=== PATIENT | female | born 1955 | race African-American/Black ===

== ENCOUNTER 2016-11-05 07:54 | Emergency (ER) | payer OTHER ==
[~2016-11-05] VITALS: Ht 170.2 cm; Wt 83.9 kg
[2016-11-05] MEDS ORDERED: NAPROSYN500 MG PO (09:52)
[2016-11-05 09:57] VITALS: BP 136/84
== END 2016-11-05 09:58 | disposition home or self-care (01) ==
LOC: ER 07:54
DX: J02.9 Acute pharyngitis, unspecified (principal)